=== PATIENT | female | born 1980 | race Hispanic/Latino ===

== ENCOUNTER 2022-07-29 10:10 | Emergency (ER) | payer SELFPAY ==
--- OUTSIDE RECORDS SUMMARY | 2022-07-29 10:13 | XMS REPORT | Continuity of Care Document ---
:1980 Author Organization [facility] Address [address] [facility] [address] [place] [address] Care Team Providers Name Role Phone Freddy Attending Clinician Unavailable EZE HDUSON Attending Clinician Unavailable NO PHYSICIAN, . Attending Clinician Unavailable CLARE COLLIER Attending Clinician Unavailable JR MURDOCK Attending Clinician Unavailable HAILEY GONZALES Attending Clinician Unavailable HORACE CHOU Attending Clinician Unavailable RODRIGUEZ STRINGER Attending Clinician Unavailable Freddy Admitting Clinician Unavailable EZE HUDSON Admitting Clinician Unavailable CLARI SOLIS Admitting Clinician Unavailable Payers Payer Name Policy Type Policy Number Effective Date Expiration Date S yonatan [facility] [id number] 2017 2017 [facility] - 00:00:00 00:00:00 STAR (MEDICAID HMO) Problems This patient has no known problems. Allergies, Adverse Reactions, Alerts This patient has no known allergies or adverse reactions. Medications This patient has no known medications. Procedures This patient has no known procedures. Encounters Start End Encounter Admission Attending Care Care Encounter Source Date/Time Date/Time Type Type Clinicians Facility Department ID 2021-08-20 2021-08-20 Outpatient Nguyen_Tho [facility] [id number] 03:43:00 03:43:00 [facility] 2021-05-26 2021-05-26 Outpatient Nguyen_Tho [facility] [id number] 05:00:00 05:00:00 [id number] [facility] 2021-01-29 2021-01-29 Outpatient Ngen_Tho [facility] [id number] 7-2021 [place] 12:17:00 12:17:00 [id number] [facility] 2020-04-04 2020-04-04 Outpatient Nguyen_Nilesho [facility] [id number] 04:34:00 04:34:00 0128 [facility] 2020-04-04 2020-04-04 Outpatient Nguyen_Tho [facility] [id number] 04:34:00 04:34:00 0201 [facility] 2008-02-08 2008-02-10 Inpatient EL BECCA, [facility] MOB [id number] 06:39:00 14:00:00 EZE [id number] [facility] 2005-11-15 2005-11-15 Outpatient NO [facility] [id number] 00:12:00 00:12:00 PHYSICIAN, -[id number] madonna Sam [facility] 2005-03-27 2005-03-30 Inpatient EL BECCA, [facility] MOB [id number] 12:45:00 12:00:00 EZE [id number] [facility] 2004-11-02 2004-11-02 Emergency ER AMIRA, [facility] [id number] 17:28:00 19:40:00 CLARE -[id number] [facility] 2004-09-22 2004-09-22 Emergency ER JR MURDOCK [facility] [id number] [place] 18:06:00 21:10:00 -[id number] [facility] 2003-05-18 2003-05-18 Emergency ER JANET, [facility] [id number] 01:55:00 03:20:00 HAILEY -[id number] [facility] 1998-10-02 1998-10-02 Outpatient FANNY KIMAugusta HORACE [facility] D00 [id number] [place] 16:46:00 16:46:00 -[id number] [facility] 1998-08-07 1998-08-09 Inpatient SHLOMO KIMAugusta HORACE [facility] MOB [id number] [place] 03:34:00 10:00:00 -[id number] [facility] 1998-07-12 1998-07-12 Outpatient FANNY STRINGER [facility] [id number] 15:30:00 15:30:00 RODRIGUEZ -[id number] [facility] 1998-04-03 1998-04-03 Outpatient HORACE NAYAK [facility] D00 [id number] [place] 10:11:00 10:11:00 -[id number] [facility] 1998-03-29 1998-03-29 Outpatient HORACE NAYAK [facility] D00 [id number] [place] 14:19:00 14:19:00 -[id number] [facility] Results This patient has no known results.
--- NOTE | 2022-07-29 10:39 | ER ---
Nurse's Notes [facility] Name: Emilia Mcelroy Age: 41 yrs Sex: Female : 1980 Arrival Date: 07/29/2022 Time: 10:10 Bed 12 Private MD: Diagnosis: Dental root caries Presentation: 07/29 10:21 Chief complaint: Patient states: left side of face hurts since last night, has a bad iw tooth , upper left molar. Coronavirus screen: At this time, the client does not indicate any symptoms associated with coronavirus-19. Ebola Screen: Patient negative for fever greater than or equal to 101.5 degrees Fahrenheit, and additional compatible Ebola Virus Disease symptoms Patient denies exposure to infectious person. Patient denies travel to an Ebola-affected area in the 21 days before illness onset. No symptoms or risks identified at this time. Initial Sepsis Screen: Does the patient meet any 2 criteria? No. Patient's initial sepsis screen is negative. Does the patient have a suspected source of infection? No. Patient's initial sepsis screen is negative. Risk Assessment: Do you want to hurt yourself or someone else? Patient reports no desire to harm self or others. Onset of symptoms was July 28, 2022. 10:21 Method Of Arrival: Ambulatory iw 10:21 Acuity: DAKOTAH 4 iw FITNESS SERVICES MANAGER: 10:25 LMP N/A - control method ll1 Historical: - Allergies: 10:22 No Known Allergies; iw - Home Meds: 10:22 None [Active]; iw - PMHx: 10:22 None; iw - PSHx: 10:22 section; iw - Immunization history:: Adult Immunizations up to date. - Social history:: Smoking status: . Screenin:24 [facility] ED Fall Risk Assessment (Adult) Score/Fall Risk Level 0 - 2 = Low Risk ll1 Oriented to surroundings, Maintained a safe environment, Educated pt \T\ family on fall prevention, incl call for assistance when getting out of bed, Hourly rounding (assess needs \T\ fall precautionary measures) done. Abuse screen: Denies threats or abuse. Nutritional screening: No deficits noted. Tuberculosis screening: No symptoms or risk factors identified. Assessment: 10:25 General: Appears in no apparent distress. Behavior is calm, cooperative. Pain: iw Complains of pain in left cheek and left jaw. Neuro: Level of Consciousness is awake, alert, obeys commands, Oriented to person, place, time, situation, Moves all extremities. Full function. Cardiovascular: Patient's skin is warm and dry. Respiratory: Respiratory effort is even, unlabored, Respiratory pattern is regular, symmetrical. Derm: Skin is intact, is healthy with good turgor. Musculoskeletal: Range of motion: intact in all extremities, Swelling present in left cheek and left jaw. 10:50 Reassessment: No changes from previously documented assessment. Patient and/or family ll1 updated on plan of care and expected duration. Pain level reassessed. Patient is alert, oriented x 3, equal unlabored respirations, skin warm/dry/pink. Vital Signs: 10:21 BP 180 / 103; Pulse 83; Resp 16; Temp 98.4; Pulse Ox 95% on R/A; Weight 117.93 kg; iw Height 5 ft. 3 in. ; Pain 9/10; 10:21 Body Mass Index 46.06 (117.93 kg, 160.02 cm) iw 10:21 Pain Scale: Adult iw ED Course: 10:14 Patient arrived in ED. mr 10:15 Rowena Marks, [facility] snw 10:15 Addy Browne MD is Attending Physician. snw 10:22 Triage completed. iw 10:22 Arm band placed on. iw 10:25 Chucky Mcelroy, RN is Primary Nurse. ll1 10:25 Patient has correct armband on for positive identification. Bed in low position. Call ll1 light in reach. Cardiac monitoring not applicable on this patient. 10:50 No provider procedures requiring assistance completed. Patient did not have IV access ll1 during this emergency room visit. Administered Medications: 10:49 Drug: Amoxicillin-Clavulanate PO 875 mg Route: PO; ll1 10:49 Follow up: Response: No adverse reaction ll1 10:49 Drug: Hydrocodone-Acetaminophen PO (7.5 mg-325 mg) 1 tabs {Note: RASS 0.} Route: PO; ll1 10:50 Follow up: Response: No adverse reaction ll1 Medication: 10:24 VIS not applicable for this client. ll1 Outcome: 10:38 Discharge ordered by . snw 10:50 Discharged to home ambulatory. ll1 10:50 Condition: stable 10:50 Discharge instructions given to patient, Instructed on discharge instructions, follow up and referral plans. medication usage, Demonstrated understanding of instructions, follow-up care, medications, Prescriptions given X 3. 10:50 Patient left the ED. ll1 Signatures: Rowena Marks, ESME-C CAN LINE EXAMINER-Csnw Luis M Lady brandt Sanam Felton, RN NADJA iw Chucky Mcelroy RN RN ll1 Corrections: (The following items were deleted from the chart) 10:49 10:49 Hydrocodone-Acetaminophen PO (7.5 mg-325 mg) 1 tabs PO ll1 ll1
--- NOTE | 2022-07-29 10:39 | EDPHYS ---
Physician Documentation [facility] Name: Emilia Mcelroy Age: 41 yrs Sex: Female : 1980 Arrival Date: 07/29/2022 Time: 10:10 Bed 12 Private MD: ED Physician Addy Browne HPI: 07/29 10:44 This 41 yrs old Female presents to ER via Ambulatory with complaints of Jaw snw Pain. 10:44 The patient presents with pain. The problem is located in the upper left third molar snw (#16). Onset: The symptoms/episode began/occurred suddenly. Duration: The symptoms are continuous. Severity of symptoms: At their worst the symptoms were moderate. The patient has not experienced similar symptoms in the past. The patient has not recently seen a physician. DRY KILN BURNER: 10:25 LMP N/A - control method ll1 Historical: - Allergies: 10:22 No Known Allergies; iw - Home Meds: 10:22 None [Active]; iw - PMHx: 10:22 None; iw - PSHx: 10:22 section; iw - Immunization history:: Adult Immunizations up to date. - Social history:: Smoking status: . ROS: 10:42 Constitutional: Negative for fever, chills, and weight loss, Eyes: Negative for injury, snw pain, redness, and discharge, ENT: Negative for injury and discharge, +dental pain/caries Neck: Negative for injury, pain, and swelling, Cardiovascular: Negative for chest pain, palpitations, and edema, Respiratory: Negative for shortness of breath, cough, wheezing, and pleuritic chest pain, Abdomen/GI: Negative for abdominal pain, nausea, vomiting, diarrhea, and constipation, Back: Negative for injury and pain, : Negative for injury, bleeding, discharge, and swelling, MS/Extremity: Negative for injury and deformity, Skin: Negative for injury, rash, and discoloration, Neuro: Negative for headache, weakness, numbness, tingling, and seizure, Psych: Negative for depression, anxiety, suicide ideation, homicidal ideation, and hallucinations. Exam: 10:42 Constitutional: This is a well developed, well nourished patient who is awake, alert, snw and in no acute distress. Head/Face: Normocephalic, atraumatic. Eyes: Pupils equal round and reactive to light, extra-ocular motions intact. Lids and lashes normal. Conjunctiva and sclera are non-icteric and not injected. Cornea within normal limits. Periorbital areas with no swelling, redness, or edema. Neck: Trachea midline, no thyromegaly or masses palpated, and no cervical lymphadenopathy. Supple, full range of motion without nuchal rigidity, or vertebral point tenderness. No Meningismus. Chest/axilla: Normal chest wall appearance and motion. Nontender with no deformity. No lesions are appreciated. Cardiovascular: Regular rate and rhythm with a normal S1 and S2. No gallops, murmurs, or rubs. Normal PMI, no JVD. No pulse deficits. Respiratory: Lungs have equal breath sounds bilaterally, clear to auscultation and percussion. No rales, rhonchi or wheezes noted. No increased work of breathing, no retractions or nasal flaring. Abdomen/GI: Soft, non-tender, with normal bowel sounds. No distension or tympany. No guarding or rebound. No evidence of tenderness throughout. Back: No spinal tenderness. No costovertebral tenderness. Full range of motion. Skin: Warm, dry with normal turgor. Normal color with no rashes, no lesions, and no evidence of cellulitis. MS/ Extremity: Pulses equal, no cyanosis. Neurovascular intact. Full, normal range of motion. Neuro: Awake and alert, GCS 15, oriented to person, place, time, and situation. Cranial nerves II-XII grossly intact. Motor strength 5/5 in all extremities. Sensory grossly intact. Cerebellar exam normal. Normal gait. Psych: Awake, alert, with orientation to person, place and time. Behavior, mood, and affect are within normal limits. 10:42 ENT: Dental exam: dental caries, that is moderate, specifically in the upper left third molar (#16), pain, that is moderate, specifically in the upper left third molar (#16). Vital Signs: 10:21 BP 180 / 103; Pulse 83; Resp 16; Temp 98.4; Pulse Ox 95% on R/A; Weight 117.93 kg; iw Height 5 ft. 3 in. ; Pain 9/10; 10:21 Body Mass Index 46.06 (117.93 kg, 160.02 cm) iw 10:21 Pain Scale: Adult iw MDM: 10:20 Patient medically screened. snw 10:43 Differential diagnosis: bacterial infection. Data reviewed: vital signs, nurses notes. snw I considered the following discharge prescriptions or medication management in the emergency department Medications were administered in the Emergency Department. See MAR. Counseling: I had a detailed discussion with the patient and/or guardian regarding: the historical points, exam findings, and any diagnostic results supporting the discharge/admit diagnosis, the presence of at least one elevated blood pressure reading (>120/80) during this emergency department visit, the need for outpatient follow up, for definitive care, to return to the emergency department if symptoms worsen or persist or if there are any questions or concerns that arise at home. Special discussion: I have referred the patient to see his PCP for further evaluation of high blood pressure. Based on the history and exam findings, there is no indication for further emergent testing or inpatient evaluation. I discussed with the patient/guardian the need to see a dentist for further evaluation of the symptoms. Administered Medications: 10:49 Drug: Amoxicillin-Clavulanate PO 875 mg Route: PO; ll1 10:49 Follow up: Response: No adverse reaction ll1 10:49 Drug: Hydrocodone-Acetaminophen PO (7.5 mg-325 mg) 1 tabs {Note: RASS 0.} Route: PO; ll1 10:50 Follow up: Response: No adverse reaction ll1 Disposition: 20:11 Co-signature as Attending Physician, Addy Browne MD I reviewed the patient's care rt provided by the Advanced Practice Provider and agree with the diagnosis and treatment plan. Disposition Summary: 07/29/22 10:38 Discharge Ordered Location: Home snw Condition: Stable snw Diagnosis - Dental root caries snw Followup: snw - With: Emergency Department - When: As needed - Reason: Worsening of condition Followup: snw - With: Private Physician - When: 2 - 3 days - Reason: Recheck today's complaints, Continuance of care, Re-evaluation by your physician Discharge Instructions: - Discharge Summary Sheet snw - Dental Caries, Adult snw - Dental Pain snw - Diet and Dental Disease snw - Dental Extraction, Care After, [id number] snw Forms: - Medication Reconciliation Form snw - Thank You Letter snw - Antibiotic Education snw - Prescription Opioid Use snw Prescriptions: - chlorhexidine gluconate 0.12 % Mucous Membrane Mouthwash - swish 15 milliliter by BUCCAL route 2 times per day; 480 milliliter; Refills: snw 0, Product Selection Permitted - Augmentin 500-125 mg Oral Tablet - take 1 tablet by ORAL route every 8 hours for 10 days; 30 tablet; Refills: 0, snw Product Selection Permitted - Tramadol 50 mg Oral Tablet - take 1 tablet by ORAL route every 8 hours as needed; 12 tablet; Refills: 0, snw Product Selection Permitted Signatures: Rowena Marks, DISABILITY SPECIALIST-C DISABILITY SPECIALIST-Csnw Sanam Felton, RN RN iw Chucky Mcelroy RN RN ll1 Addy Browne MD MD rt
[2022-07-29] MEDS ORDERED: AMOX/K CLAV 875 MG TAB ONE (10:50)
[2022-07-29] MEDS ORDERED: HYDROCODONE/APAP 7.5/325 MG TAB ONE (10:51)
[2022-07-29 10:58] VITALS: BP 180/103; TEMP 98.4; O2SAT 95
== END 2022-07-29 10:50 | disposition home or self-care (01) ==
LOC: ER 10:10
DX: K02.7 Dental root caries (principal)

== ENCOUNTER 2022-08-07 08:03 | Emergency (ER) | payer SELFPAY ==
--- OUTSIDE RECORDS SUMMARY | 2022-08-07 08:06 | XMS REPORT | Continuity of Care Document ---
:1980 Author Organization [facility] Address [address] [facility] [address] [facility] [address] [place] [address] Care Team Providers Name Role Phone Freddy Attending Clinician Unavailable EZE HUDSON Attending Clinician Unavailable NO PHYSICIAN, . Attending Clinician Unavailable CLARE COLLIER Attending Clinician Unavailable JR MURDOCK Attending Clinician Unavailable HAILEY GONZALES Attending Clinician Unavailable HORACE CHOU Attending Clinician Unavailable RODRIGUEZ STRINGER Attending Clinician Unavailable Freddy Admitting Clinician Unavailable EZE HUDSON Admitting Clinician Unavailable CLARI SOLIS Admitting Clinician Unavailable Payers Payer Name Policy Type Policy Number Effective Date Expiration Date S yonatan [facility] [id number] 2017 2017 [facility] - 00:00:00 00:00:00 STAR (MEDICAID HMO) Problems This patient has no known problems. Allergies, Adverse Reactions, Alerts This patient has no known allergies or adverse reactions. Medications This patient has no known medications. Procedures This patient has no known procedures. Encounters Start End Encounter Admission Attending Care Care Encounter Source Date/Time Date/Time Type Type Clinicians Facility Department ID 2021-08-20 2021-08-20 Outpatient Nguyen_Tho [facility] [id number] 03:43:00 03:43:00 [id number] [facility] 2021-05-26 2021-05-26 Outpatient Nguyen_Tho [facility] [id number] 05:00:00 05:00:00 0321 [facility] 2021-01-29 2021-01-29 Outpatient Ngen_Tho [facility] [id number] 7-2021 [place] 12:17:00 12:17:00 [id number] [facility] 2020-04-04 2020-04-04 Outpatient Nguyen_Nilesho [facility] [id number] 04:34:00 04:34:00 0128 [facility] 2020-04-04 2020-04-04 Outpatient Nguyen_Tho [facility] [id number] 04:34:00 04:34:00 0201 [facility] 2008-02-08 2008-02-10 Inpatient EL BECCA, [facility] MOB [id number] 06:39:00 14:00:00 EZE [id number] [facility] 2005-11-15 2005-11-15 Outpatient NO [facility] [id number] 00:12:00 00:12:00 PHYSICIAN, -[id number] madonna Sam [facility] 2005-03-27 2005-03-30 Inpatient EL BECCA, [facility] MOB [id number] 12:45:00 12:00:00 EZE [id number] [facility] 2004-11-02 2004-11-02 Emergency ER AMIRA, [facility] [id number] 17:28:00 19:40:00 CLARE -[id number] [facility] 2004-09-22 2004-09-22 Emergency ER JR MURDOCK [facility] [id number] [place] 18:06:00 21:10:00 -[id number] [facility] 2003-05-18 2003-05-18 Emergency ER JANET, [facility] [id number] 01:55:00 03:20:00 HAILEY -[id number] [facility] 1998-10-02 1998-10-02 Outpatient FANNY KIMAugusta HORACE [facility] D00 [id number] [place] 16:46:00 16:46:00 -[id number] [facility] 1998-08-07 1998-08-09 Inpatient SHLOMO KIMAugusta HORACE [facility] MOB [id number] [place] 03:34:00 10:00:00 -[id number] [facility] 1998-07-12 1998-07-12 Outpatient FANNY STRINGER [facility] [id number] 15:30:00 15:30:00 RODRIGUEZ -[id number] [facility] 1998-04-03 1998-04-03 Outpatient HORACE NAYAK [facility] D00 [id number] [place] 10:11:00 10:11:00 -[id number] [facility] 1998-03-29 1998-03-29 Outpatient HORACE NAYAK [facility] D00 [id number] [place] 14:19:00 14:19:00 -[id number] [facility] Results This patient has no known results.
[2022-08-07] MEDS ORDERED: KETOROLAC 30 MG/ML INJ ONE (08:22)
[2022-08-07] MEDS ORDERED: HYDROCODONE/APAP 10/325 TAB ONE (08:22)
--- NOTE | 2022-08-07 09:47 | RAD REPORT ---
EXAM DESCRIPTION: RAD - Shoulder Right 2 View - 08/07/2022 9:41 am CLINICAL HISTORY: Right shoulder pain FINDINGS: No fracture or dislocation is seen. No significant bone or joint abnormality is displayed
[2022-08-07] MEDS ORDERED: MORPHINE 4 MG/ML SYR ONE (10:13)
--- NOTE | 2022-08-07 10:24 | EDPHYS ---
Physician Documentation [facility] Name: Emilia Mcelroy Age: 41 yrs Sex: Female : 1980 Arrival Date: 08/07/2022 Time: 08:03 Bed 6 Private MD: ED Physician Addy Browne HPI: 08/07 08:12 This 41 yrs old Female presents to ER via Ambulatory with complaints of Arm jmm Pain. 08:12 The patient or guardian complains of pain. The complaints affect the anterior aspect of jmm right shoulder. Onset: The symptoms/episode began/occurred gradually. Modifying factors: The symptoms are alleviated by nothing. the symptoms are aggravated by movement. Is a 41-year-old female with history of rheumatoid arthritis the presents emerged part with complaints of right shoulder pain began approximately 3 weeks ago. Pain intensified last night. Patient states she has pain in particular on abduction, the pain radiates down to her hand. Patient denies any known injury.. Historical: - Allergies: 08:20 No Known Allergies; ld1 - PMHx: 08:21 None; ld1 - PSHx: 08:12 section; ld1 - Immunization history:: Adult Immunizations up to date. - Social history:: Smoking status: Patient denies any tobacco usage or history of. ROS: 08:12 Constitutional: Negative for fever, chills, and weight loss, Cardiovascular: Negative jmm for chest pain, palpitations, and edema, Respiratory: Negative for shortness of breath, cough, wheezing, and pleuritic chest pain. 08:12 MS/extremity: Positive for pain. 08:12 All other systems are negative. Exam: 08:12 Head/Face: atraumatic. Eyes: EOMI, no conjunctival erythema appreciated ENT: Moist jmm Mucus Membranes Neck: Trachea midline, Supple Chest/axilla: Normal chest wall appearance and motion. Cardiovascular: Regular rate and rhythm. No edema appreciated Respiratory: Normal respirations, no respiratory distress appreciated Abdomen/GI: Non distended Back: Normal ROM Skin: General appearance color normal 08:12 Neuro: Awake and alert Psych: Behavior is normal, Mood is normal, Patient is cooperative and pleasant 08:12 Constitutional: The patient appears alert, awake, uncomfortable. 08:12 Musculoskeletal/extremity: ROM: Right anterior shoulder tender to palpation, compartments are soft, pain is elicited on abduction, radial pulse intact, less than 2 seconds cap refill, full pump room operator strength, neurovascular intact. Vital Signs: 08:18 Pulse 92; Resp 18; Temp 98.6(O); Pulse Ox 98% on R/A; Weight 120.2 kg; Height 5 ft. 3 hb in. ; Pain 10/10; 08:19 BP 203 / 118; Pulse 86; Resp 18; Temp 98.3(O); Pulse Ox 100% on R/A; Weight 117.93 kg; ld1 Height 5 ft. 3 in. ; Pain 9/10; 08:41 BP 189 / 91; Pulse 75; Resp 18; Pulse Ox 99% on R/A; ld1 10:00 BP 154 / 79; Pulse 74; Resp 18; Pulse Ox 98% on R/A; ld1 10:42 BP 151 / 76; Pulse 71; Resp 18; Pulse Ox 100% on R/A; ld1 08:19 Body Mass Index 46.06 (117.93 kg, 160.02 cm) ld1 08:18 Pain Scale: Adult hb 08:19 Pain Scale: Adult ld1 MDM: 08:12 Patient medically screened. [facility] 08:12 Differential diagnosis: tendonitis. Data reviewed: vital signs, nurses notes, [facility] radiologic studies, plain films. Independent interpretation of the following test(s) in the Emergency Department X-Ray: My interpretation is No fracture appreciated. Counseling: I had a detailed discussion with the patient and/or guardian regarding: the historical points, exam findings, and any diagnostic results supporting the discharge/admit diagnosis, radiology results, the need for outpatient follow up, to return to the emergency department if symptoms worsen or persist or if there are any questions or concerns that arise at home. 08/07 09:25 Order name: Shoulder Right (2 View) XRAY; Complete Time: 09:48 [facility] 08/07 10:02 Order name: Sling; Complete Time: 10:42 [facility] 08/07 10:02 Order name: Ice pack; Complete Time: 10:17 [facility] Administered Medications: 08:18 Drug: [place] PO 10 mg-325 mg 1 tabs Route: PO; ld1 10:13 Follow up: Response: No adverse reaction 9 08:18 Drug: Ketorolac IM 30 mg Route: IM; Site: left deltoid; ld1 10:13 Follow up: Response: No adverse reaction mb9 10:07 Drug: morphine IM 4 mg Route: IM; Site: left gluteus; mb9 10:13 Follow up: Response: No adverse reaction mb9 Disposition: 11:18 Co-signature as Attending Physician, Addy Browne MD I reviewed the patient's care rt provided by the Advanced Practice Provider and agree with the diagnosis and treatment plan. Disposition Summary: 08/07/22 10:22 Discharge Ordered Location: Home [facility] Condition: Stable jm Diagnosis - Pain in right shoulder [facility] Followup: m - With: Justin Mccrary MD - When: 2 - 3 days - Reason: Recheck today's complaints, Continuance of care, Re-evaluation by your physician Discharge Instructions: - Discharge Summary Sheet [facility] - Shoulder Pain [facility] - Adhesive Capsulitis [facility] Forms: - Medication Reconciliation Form [facility] - Thank You Letter [facility] - Antibiotic Education [facility] - Prescription Opioid Use [facility] Prescriptions: - Prednisone 20 mg Oral Tablet - take 3 tablets by ORAL route once daily for 5 days; 15 tablet; Refills: 0, [facility] Product Selection Permitted - Zanaflex 4 mg Oral Tablet - take 1 tablet by ORAL route every 8 hours As needed; 20 tablet; Refills: 0, [facility] Product Selection Permitted - Diclofenac Sodium 75 mg Oral Tablet Sustained Release - take 1 tablet by ORAL route 2 times per day; 30 tablet; Refills: 0, Product [facility] Selection Permitted Signatures: Dispatcher [employer] Zach Camargo PA PA Maira He RN RN hb Sims, Lauren, RN RN ld1 Lady Valdez RN RN mb9 Addy Browne MD MD rt
--- NOTE | 2022-08-07 10:24 | ER ---
Nurse's Notes [facility] Name: Emilia Mcelroy Age: 41 yrs Sex: Female : 1980 Arrival Date: 08/07/2022 Time: 08:03 Bed 6 Private MD: Diagnosis: Pain in right shoulder Presentation: 08/07 08:18 Chief complaint: Right shoulder pain that radiates to right arm x 3 weeks, became hb severe last night. Coronavirus screen: At this time, the client does not indicate any symptoms associated with coronavirus-19. Ebola Screen: No symptoms or risks identified at this time. Initial Sepsis Screen: Does the patient meet any 2 criteria? No. Patient's initial sepsis screen is negative. Does the patient have a suspected source of infection? No. Patient's initial sepsis screen is negative. Risk Assessment: Do you want to hurt yourself or someone else? Patient reports no desire to harm self or others. Onset of symptoms was July 2022. 08:18 Method Of Arrival: Ambulatory hb 08:18 Acuity: DAKOTAH 4 hb Historical: - Allergies: 08:20 No Known Allergies; ld1 - PMHx: 08:21 None; ld1 - PSHx: 08:12 section; ld1 - Immunization history:: Adult Immunizations up to date. - Social history:: Smoking status: Patient denies any tobacco usage or history of. Screenin:19 [facility] ED Fall Risk Assessment (Adult) History of falling in the last 3 months, ld1 including since admission No falls in past 3 months (0 pts). Abuse screen: Denies threats or abuse. Denies injuries from another. Nutritional screening: No deficits noted. Tuberculosis screening: No symptoms or risk factors identified. Assessment: 08:19 General: Appears in no apparent distress. uncomfortable, Behavior is cooperative, ld1 anxious, crying. Pain: Complains of pain in right arm Pain does not radiate. Pain currently is 9 out of 10 on a pain scale. Quality of pain is described as throbbing. Neuro: Level of Consciousness is awake, alert, obeys commands, Oriented to person, place, time, situation. Cardiovascular: Capillary refill < 3 seconds Patient's skin is warm and dry. Respiratory: Airway is patent Respiratory effort is even, unlabored. GI: Abdomen is round non-distended. : No signs and/or symptoms were reported regarding the genitourinary system. EENT: No signs and/or symptoms were reported regarding the EENT system. Derm: No signs and/or symptoms reported regarding the dermatologic system. Musculoskeletal: No signs and/or symptoms reported regarding the musculoskeletal system. 10:42 Reassessment: Patient appears in no apparent distress at this time. No changes from ld1 previously documented assessment. Vital Signs: 08:18 Pulse 92; Resp 18; Temp 98.6(O); Pulse Ox 98% on R/A; Weight 120.2 kg; Height 5 ft. 3 hb in. ; Pain 10/10; 08:19 BP 203 / 118; Pulse 86; Resp 18; Temp 98.3(O); Pulse Ox 100% on R/A; Weight 117.93 kg; ld1 Height 5 ft. 3 in. ; Pain 9/10; 08:41 BP 189 / 91; Pulse 75; Resp 18; Pulse Ox 99% on R/A; ld1 10:00 BP 154 / 79; Pulse 74; Resp 18; Pulse Ox 98% on R/A; ld1 10:42 BP 151 / 76; Pulse 71; Resp 18; Pulse Ox 100% on R/A; ld1 08:19 Body Mass Index 46.06 (117.93 kg, 160.02 cm) ld1 08:18 Pain Scale: Adult hb 08:19 Pain Scale: Adult ld1 ED Course: 08:06 Patient arrived in ED. mr 08:12 Zach Altman PA is PHCP. jmm 08:12 Addy Browne MD is Attending Physician. jmm 08:12 Fabiana Morris, NADJA is Primary Nurse. ld1 08:18 Arm band placed on. hb 08:19 Triage completed. hb 08:19 Patient has correct armband on for positive identification. Placed in gown. Bed in low ld1 position. Call light in reach. Side rails up X2. nuclear monitoring technician on. Pulse ox on. NIBP on. Door closed. Noise minimized. Warm blanket given. 08:19 No provider procedures requiring assistance completed. ld1 09:43 Shoulder Right (2 View) XRAY In Process Unspecified. EDMS 10:22 Justin Mccrary MD is Referral Physician. jmm 10:39 Patient did not have IV access during this emergency room visit. mb9 Administered Medications: 08:18 Drug: [place] PO 10 mg-325 mg 1 tabs Route: PO; ld1 10:13 Follow up: Response: No adverse reaction mb9 08:18 Drug: Ketorolac IM 30 mg Route: IM; Site: left deltoid; ld1 10:13 Follow up: Response: No adverse reaction mb9 10:07 Drug: morphine IM 4 mg Route: IM; Site: left gluteus; mb9 10:13 Follow up: Response: No adverse reaction mb9 Medication: 10:39 VIS not applicable for this client. mb9 Outcome: 10:22 Discharge ordered by MD. vera 10:42 Discharged to home ambulatory, with family. ld1 10:42 Condition: stable 10:42 Discharge instructions given to patient, family, Instructed on discharge instructions, follow up and referral plans. medication usage, Demonstrated understanding of instructions, follow-up care, medications, Prescriptions given X 3. 10:43 Patient left the ED. ld1 Signatures: Dispatcher [employer] EDMS Zach Altman PA PA jmm Rivera, Mary mr Baxter, Heather RN NADJA Fabiana Morris RN RN ld1 Lady Valdez RN RN mb9
[2022-08-07 10:50] VITALS: TEMP 98.3
[2022-08-07 10:55] VITALS: BP 151/76; O2SAT 100
== END 2022-08-07 10:43 | disposition home or self-care (01) ==
LOC: ER 08:03
DX: M25.511 Pain in right shoulder (principal)
CPT/HCPCS: 96372; 99285

== ENCOUNTER 2022-08-11 18:37 | Emergency (ER) | payer SELFPAY ==
--- OUTSIDE RECORDS SUMMARY | 2022-08-11 18:39 | XMS REPORT | Continuity of Care Document ---
:1980 Author Organization [facility] Address [address] [place] [address] Care Team Providers Name Role Phone Freddy [...] Number Effective Date Expiration Date S yonatan [facility] [id number] 2017 2017 [facility] - 00:00:00 00:00:00 STAR (MEDICAID [...] Facility Department ID 2021-08-20 2021-08-20 Outpatient Nguyen_Tho [facility] [id number] 03:43:00 03:43:00 [id number] [facility] 2021-05-26 2021-05-26 Outpatient Nguyen_Tho [facility] [id number] 05:00:00 05:00:00 [id number] [facility] 2021-01-29 2021-01-29 Outpatient Ngen_Tho [facility] [id number] [place] 12:17:00 12:17:00 [id number] [facility] 2020-04-04 2020-04-04 Outpatient Nguyen_Nilesho [facility] [id number] 04:34:00 04:34:00 [id number] [facility] 2020-04-04 2020-04-04 Outpatient Nguyen_Tho [facility] [id number] 04:34:00 04:34:00 [id number] [facility] 2008-02-08 2008-02-10 Inpatient EL BECCA, [facility] MOB [id number] 06:39:00 14:00:00 EZE [id number] [facility] 2005-11-15 2005-11-15 Outpatient NO [facility] [id number] 00:12:00 00:12:00 PHYSICIAN, -[id number] madonna Sam [facility] 2005-03-27 2005-03-30 Inpatient EL BECCA, [facility] MOB [id number] 12:45:00 12:00:00 EZE [id number] [facility] 2004-11-02 2004-11-02 Emergency ER AMIRA, [facility] [id number] 17:28:00 19:40:00 CLARE -[id number] [facility] 2004-09-22 2004-09-22 Emergency ER JR MURDOCK [facility] [id number] [place] 18:06:00 21:10:00 -[id number] [facility] 2003-05-18 2003-05-18 Emergency ER JANET, [facility] [id number] 01:55:00 03:20:00 HAILEY -[id number] [facility] 1998-10-02 1998-10-02 Outpatient FANNY KIMAugusta HORACE [facility] [id number] [place] 16:46:00 16:46:00 -[id number] [facility] 1998-08-07 1998-08-09 Inpatient SHLOMO KIMAugutsa HORACE [facility] MOB [id number] [place] 03:34:00 10:00:00 -[id number] [facility] 1998-07-12 1998-07-12 Outpatient FANNY STRINGER [facility] [id number] 15:30:00 15:30:00 RODRIGUEZ -[id number] [facility] 1998-04-03 1998-04-03 Outpatient HORACE NAYAK [facility] [id number] [place] 10:11:00 10:11:00 -[id number] [facility] 1998-03-29 1998-03-29 Outpatient HORACE NAYAK [facility] [id number] [place] 14:19:00 14:19:00 -[id number] [facility] Results This patient has no known results.
[2022-08-11 21:18] LABS: Absolute Lymphocytes (CBC) 1.7 K/uL (0.7-4.9); Hematocrit 35.6 % (36.0-45.0); Lymphocytes % 12.7 % (15.3-44.8); MCV 81.3 fL (80-100); MPV 8.4 fL (7.6-11.3); Protime INR 0.95; RBC Red Blood Cell Count 4.38 M/uL (3.86-4.86)
[2022-08-11 21:43] LABS: ALT/SGPT 100 U/L (13-56); AST/SGOT 19 U/L (15-37); Albumin 3.5 g/dL (3.4-5.0); Alkaline Phosphatase 89 U/L (45-117); BUN Blood Urea Nitrogen 13 mg/dL (7-18); Bicarbonate 30 mEq/L (21-32); Bilirubin Total 0.2 mg/dL (0.2-1.0); Glomerular Filtration Rate 117 ml/min (=/>90); Glucose Level 164 mg/dL (74-106); Potassium 4.1 mEq/L (3.5-5.1); Protein, Total 7.6 g/dL (6.4-8.2); Sodium Level 138 mEq/L (136-145); Troponin High Sensitivity 4.8 pg/mL (<58.9)
[2022-08-11 21:46] LABS: Bilirubin Direct < 0.1 mg/dL (0-0.2); Bilirubin Indirect, Calculated ND mg/dL (0.2-0.8); C-Reactive Protein < 2.90 mg/L (<3.00)
[2022-08-11] MEDS ORDERED: HYDROCODONE/APAP 5/325 MG TAB ONE (22:22)
[2022-08-11] MEDS ORDERED: methocarbamoL 500 MG TAB ONE (22:23)
[2022-08-11] MEDS ORDERED: IBUPROFEN 400 MG TAB ONE (22:23)
--- NOTE | 2022-08-11 22:29 | RAD REPORT ---
EXAM DESCRIPTION: CT - Chest For Pe Angio - 08/11/2022 10:16 pm CLINICAL HISTORY: Chest pain. CHEST PAIN COMPARISON: No comparisons TECHNIQUE: CT angiogram of the pulmonary arteries was performed with MIP. All CT scans are performed using dose optimization technique as appropriate and may include automated exposure control or mA/KV adjustment according to patient size. FINDINGS: No evidence of pulmonary thromboembolism. No acute aortic finding demonstrated. The lungs are clear. No significant pericardial or pleural fluid. No concerning bony finding. IMPRESSION: No evidence of pulmonary thromboembolism. No acute lung findings.
--- NOTE | 2022-08-11 23:44 | EDPHYS ---
Physician Documentation [facility] Name: Emilia Mcelroy Age: 41 yrs Sex: Female : 1980 Arrival Date: 08/11/2022 Time: 18:37 Bed 8 Private MD: ED Physician Rosendo Yee HPI: 08/11 20:01 This 41 yrs old Female presents to ER via Ambulatory with complaints of sp4 Shoulder Pain. 21:49 41-year-old female presents with right shoulder pain with radiation to the right chest sp4 associated with pain with shoulder movement. Pain started 6 days ago. Patient was here on 08/07/2022 had a negative shoulder x-ray. Patient has history of rheumatoid arthritis. Patient states that her rheumatoid arthritis currently unmanaged. Patient describes pain as constant, radiating around the right shoulder blade the right chest as well. Worse with the right shoulder movement . . Historical: - Allergies: 19:27 No Known Allergies; nj1 - PMHx: 19:27 Hypertensive disorder; RA; nj1 - PSHx: 19:27 section; section; section; section; nj1 - Immunization history:: Client reports having NOT received the Covid vaccine. - Social history:: Smoking status: Patient denies any tobacco usage or history of. - Family history:: not pertinent. ROS: 21:49 Constitutional: Negative for fever, chills, and weight loss, Eyes: Negative for injury, sp4 pain, redness, and discharge, ENT: Negative for injury, pain, and discharge, Neck: Negative for injury, pain, and swelling, Cardiovascular: Negative for palpitations, and edema, right shoulder pain with radiation to the right chest Respiratory: Negative for shortness of breath, cough, wheezing, and pleuritic chest pain, Abdomen/GI: Negative for abdominal pain, nausea, vomiting, diarrhea, and constipation, Back: Negative for injury and pain, : Negative for injury, bleeding, discharge, and swelling, MS/Extremity: Negative for injury and deformity, positive for nontraumatic right shoulder pain right shoulder blade pain Skin: Negative for injury, rash, and discoloration, Neuro: Negative for headache, weakness, numbness, tingling, and seizure, Psych: Negative for depression, anxiety, Allergy/Immunology: Negative for hives, rash, and allergies Endocrine: Negative for neck swelling, polydipsia, polyuria, polyphagia, and weight changes Hematologic/Lymphatic: Negative for swollen nodes, abnormal bleeding, and unusual bruising Exam: 21:49 Constitutional: This is a well developed, well nourished patient who is awake, alert, sp4 and in no acute distress. Head/Face: Normocephalic, atraumatic. Eyes: Pupils equal round and reactive to light, extra-ocular motions intact. Lids and lashes normal. Conjunctiva and sclera are not injected. Cornea within normal limits. Periorbital areas with no swelling, redness, or edema. ENT: Nares patent. No nasal discharge, no septal abnormalities noted. Tympanic membranes are normal and external auditory canals are clear. Oropharynx with no redness, swelling, or masses, exudates, or evidence of obstruction, uvula midline. Mucous membranes moist. Neck: Trachea midline, no thyromegaly or masses palpated, and no cervical lymphadenopathy. Supple, full range of motion without nuchal rigidity, or vertebral point tenderness. No Meningismus. Chest/axilla: Normal chest wall appearance and motion. Nontender with no deformity. No lesions are appreciated. Cardiovascular: Regular rate and rhythm with a normal S1 and S2. No gallops, murmurs, or rubs. Normal PMI, no JVD. No pulse deficits. Respiratory: Lungs have equal breath sounds bilaterally, clear to auscultation and percussion. No rales, rhonchi or wheezes noted. No increased work of breathing, no retractions or nasal flaring. Abdomen/GI: Soft, non-tender, with normal bowel sounds. No distension or tympany. No guarding or rebound. No evidence of tenderness throughout. Back: No spinal tenderness. No costovertebral tenderness. Skin: Warm, dry with normal turgor. Normal color with no rashes, no lesions, and no evidence of cellulitis. MS/ Extremity: Pulses equal, no cyanosis. Neurovascular intact. Full, normal range of motion. Positive right shoulder blade tenderness otherwise normal exam. There is no swelling, intact peripheral pulses Neuro: Awake and alert, GCS 15, oriented to person, place, time, and situation. Cranial nerves II-XII grossly intact. Motor strength 5/5 in all extremities. Sensory grossly intact. Psych: Awake, alert, with orientation to person, place and time. Behavior, mood, and affect are within normal limits Vital Signs: 19:24 BP 189 / 93; Pulse 62; Resp 18; Temp 97.3(TE); Pulse Ox 99% on R/A; Weight 120.2 kg; nj1 Height 5 ft. 3 in. ; Pain 9/10; 22:39 BP 176 / 89; Pulse 64; Resp 17 S; Pulse Ox 99% on R/A; lg3 08/12 00:08 BP 161 / 86; Pulse 62; Resp 17 S; Pulse Ox 99% on R/A; lg3 08/11 19:24 Body Mass Index 46.94 (120.20 kg, 160.02 cm) [facility] 08/11 19:24 Pain Scale: Adult [facility] MDM: 08/11 20:25 Patient medically screened. sp4 23:41 Differential diagnosis: humeral head fracture, DJD, tendonitis, Inflammatory sp4 arthropathy. Data reviewed: vital signs, nurses notes, lab test result(s), cardiac enzymes, CBC, electrolytes, hepatic panel, radiologic studies, CT scan. ED course: CT chest PE protocol is unremarkable. There was also no acute bony findings. No signs of vascular anomalies. No signs of lung tumors. Patient is stable for discharge home will advise follow-up with primary MD for management of rheumatoid arthritis, likely diagnosis rheumatoid arthritis flare. CRP is negative however patient has been taking p.o. prednisone since 08/07/2022.. There is mild WBC elevation also likely secondary to acute glucocorticoid consumption.. Will provide prescription for tramadol and Robaxin as needed for pain, will extend prednisone course for the next 5 days. . 08/11 20:38 Order name: Basic Metabolic Panel; Complete Time: 21:54 [facility] 08/11 20:38 Order name: CBC with Diff; Complete Time: 21:54 [facility] 08/11 20:38 Order name: LFT's; Complete Time: 21:54 [facility] 08/11 20:38 Order name: PT-INR; Complete Time: 21:54 [facility] 08/11 20:38 Order name: Troponin HS; Complete Time: 21:54 [facility] 08/11 20:39 Order name: CRP; Complete Time: 21:54 [facility] 08/11 20:39 Order name: CT Chest For PE Angio; Complete Time: 23:34 [facility] 08/11 20:38 Order name: IV Saline Lock; Complete Time: 21:12 sp4 08/11 20:38 Order name: Labs collected and sent; Complete Time: 21:12 sp4 Administered Medications: 22:35 Drug: HYDROcodone-acetaminophen PO 5 mg-325 mg 1 tabs Route: PO; lg3 08/12 00:02 Follow up: Response: No adverse reaction lg3 08/11 22:35 Drug: Ibuprofen PO 800 mg Route: PO; lg3 08/12 00:02 Follow up: Response: No adverse reaction lg3 08/11 22:35 Drug: Methocarbamol PO 1500 mg Route: PO; lg3 08/12 00:02 Follow up: Response: No adverse reaction lg3 00:02 Drug: HYDROcodone-acetaminophen PO 5 mg-325 mg 1 tabs Route: PO; lg3 00:02 Drug: Promethazine PO 25 mg Route: PO; lg3 Disposition Summary: 08/11/22 23:43 Discharge Ordered Location: Home sp4 Problem: new sp4 Symptoms: have improved sp4 Condition: Stable sp4 Diagnosis - Pain in right shoulder sp4 - Inflammatory arthropathy. History of rheumatoid arthritis, right shoulder arthritissp4 Followup: sp4 - With: Private Physician - When: 7 - 10 days - Reason: Recheck today's complaints Discharge Instructions: - Discharge Summary Sheet sp4 - Rheumatoid Arthritis, Brun-tl-Merx sp4 Prescriptions: - Prednisone 20 mg Oral Tablet - take 1 tablet by ORAL route once daily for 5 days; 5 tablet; Refills: 0, sp4 Product Selection Permitted - Tramadol 50 mg Oral Tablet - take 1 tablet by ORAL route every 8 hours as needed; 30 tablet; Refills: 0, sp4 Product Selection Permitted - methocarbamol 750 mg Oral Tablet - take 2 tablets by ORAL route 4 times per day for 3 days; 60 tablet; Refills: 0, sp4 Product Selection Permitted Signatures: Dispatcher [employer] Radha Wyatt, RN RN lg3 Rosendo Yee MD MD sp4 Trisha Nguyen RN RN nj1
--- NOTE | 2022-08-11 23:44 | ER ---
Nurse's Notes [facility] Name: Emilia Mcelroy Age: 41 yrs Sex: Female : 1980 Arrival Date: 08/11/2022 Time: 18:37 Bed 8 Private MD: Diagnosis: Pain in right shoulder;Inflammatory arthropathy. History of rheumatoid arthritis, right shoulder arthritis Presentation: 08/11 19:24 Chief complaint: Patient states: Right shoulder pain, no known injury, onset was nj1 , seen here then, ran out of muscle relaxants this morning. Pain is getting as severe as when she first came . Appointment with PCP this coming Wednesday. Coronavirus screen: Vaccine status: Patient reports being unvaccinated. Ebola Screen: Patient denies travel to an Ebola-affected area in the 21 days before illness onset. Initial Sepsis Screen: Does the patient meet any 2 criteria? No. Patient's initial sepsis screen is negative. Does the patient have a suspected source of infection? No. Patient's initial sepsis screen is negative. Risk Assessment: Do you want to hurt yourself or someone else? Patient reports no desire to harm self or others. Onset of symptoms was August 06, 2022. 19:24 Method Of Arrival: Ambulatory [facility] 19:24 Acuity: DAKOTAH 3 nj1 Historical: - Allergies: 19:27 No Known Allergies; nj1 - PMHx: 19:27 Hypertensive disorder; RA; nj1 - PSHx: 19:27 section; section; section; section; nj1 - Immunization history:: Client reports having NOT received the Covid vaccine. - Social history:: Smoking status: Patient denies any tobacco usage or history of. - Family history:: not pertinent. Screenin:10 [facility] ED Fall Risk Assessment (Adult) History of falling in the last 3 months, lg3 including since admission No falls in past 3 months (0 pts). Abuse screen: Denies threats or abuse. Denies injuries from another. Nutritional screening: No deficits noted. Tuberculosis screening: No symptoms or risk factors identified. Assessment: 21:10 General: Appears in no apparent distress. uncomfortable, Behavior is calm, cooperative. lg3 Pain: Complains of pain in right shoulder Pain radiates to right arm. Neuro: No deficits noted. Pena Agitation-Sedation Scale (RASS): 0 - Alert and Calm Level of Consciousness is awake, alert, obeys commands, Oriented to person, place, time, situation. Cardiovascular: No deficits noted. Denies chest pain, shortness of breath, Capillary refill < 3 seconds Clubbing of nail beds is absent Patient's skin is warm and dry. Respiratory: No deficits noted. Airway is patent Respiratory effort is even, unlabored, Respiratory pattern is regular, symmetrical. GI: No deficits noted. No signs and/or symptoms were reported involving the gastrointestinal system. Abdomen is round non-distended, obese. : No deficits noted. No signs and/or symptoms were reported regarding the genitourinary system. EENT: No deficits noted. No signs and/or symptoms were reported regarding the EENT system. Derm: No deficits noted. No signs and/or symptoms reported regarding the dermatologic system. Skin is intact, is healthy with good turgor, Skin is dry, Skin is normal, Skin temperature is warm. Musculoskeletal: No deficits noted. Circulation, motion, and sensation intact. Range of motion: intact in all extremities, Reports pain in right shoulder. 22:39 Reassessment: Patient appears in no apparent distress at this time. No changes from lg3 previously documented assessment. Patient and/or family updated on plan of care and expected duration. Pain level reassessed. Patient is alert, oriented x 3, equal unlabored respirations, skin warm/dry/pink. 08/12 00:03 Reassessment: Patient appears in no apparent distress at this time. No changes from lg3 previously documented assessment. Patient and/or family updated on plan of care and expected duration. Pain level reassessed. Patient is alert, oriented x 3, equal unlabored respirations, skin warm/dry/pink. Patient states feeling better. Vital Signs: 08/11 19:24 BP 189 / 93; Pulse 62; Resp 18; Temp 97.3(TE); Pulse Ox 99% on R/A; Weight 120.2 kg; nj1 Height 5 ft. 3 in. ; Pain 9/10; 22:39 BP 176 / 89; Pulse 64; Resp 17 S; Pulse Ox 99% on R/A; lg3 08/12 00:08 BP 161 / 86; Pulse 62; Resp 17 S; Pulse Ox 99% on R/A; lg3 06/06 19:24 Body Mass Index 46.94 (120.20 kg, 160.02 cm) nj1 08/11 19:24 Pain Scale: Adult ut1 ED Course: 08/11 18:38 Patient arrived in ED. rg4 19:27 Triage completed. nj1 19:27 Arm band placed on left wrist. nj1 20:00 Rosendo Yee MD is Attending Physician. sp4 20:44 Radiology exam delayed due to lab results not completed at this time. (BUN/Creatinine) jg10 test not completed at this time. IV insertion attempt and/or patient not having appropriate IV at this time. 21:10 Patient has correct armband on for positive identification. Placed in gown. Bed in low lg3 position. Call light in reach. Side rails up X 1. Client placed on continuous cardiac and pulse oximetry monitoring. NIBP monitoring applied. Door closed. Noise minimized. Warm blanket given. Family accompanied patient. 21:12 Basic Metabolic Panel Sent. bc6 21:12 CBC with Diff Sent. bc6 21:12 LFT's Sent. bc6 21:12 PT-INR Sent. bc6 21:12 Troponin HS Sent. bc6 21:12 Inserted saline lock: 20 gauge in left antecubital area, using aseptic technique. bc6 22:10 Radha Mcgraw, RN is Primary Nurse. lg3 22:24 CT Chest For PE Angio In Process Unspecified. EDMS 08/12 00:09 No provider procedures requiring assistance completed. IV discontinued, intact, lg3 bleeding controlled, No redness/swelling at site. Pressure dressing applied. Administered Medications: 08/11 22:35 Drug: HYDROcodone-acetaminophen PO 5 mg-325 mg 1 tabs Route: PO; lg3 08/12 00:02 Follow up: Response: No adverse reaction lg3 08/11 22:35 Drug: Ibuprofen PO 800 mg Route: PO; lg3 08/12 00:02 Follow up: Response: No adverse reaction lg3 08/11 22:35 Drug: Methocarbamol PO 1500 mg Route: PO; lg3 08/12 00:02 Follow up: Response: No adverse reaction lg3 00:02 Drug: HYDROcodone-acetaminophen PO 5 mg-325 mg 1 tabs Route: PO; lg3 00:02 Drug: Promethazine PO 25 mg Route: PO; lg3 Medication: 00:09 VIS not applicable for this client. lg3 Outcome: 08/11 23:43 Discharge ordered by . sp4 08/12 00:09 Discharged to home ambulatory. lg3 Condition: stable Discharge instructions given to patient, Instructed on discharge instructions, follow up and referral plans. medication usage, Demonstrated understanding of instructions, follow-up care, medications, Prescriptions given X 3. 00:09 Patient left the ED. lg3 Signatures: Dispatcher [employer] EDMS Keyla Alvarenga rg4 Radha Mcgraw, NADJA RN lg3 Danielle Nelson jg10 Analisa Del Real bc6 Rosendo Yee MD MD sp4 Trisha Nguyen RN RN nj1 Corrections: (The following items were deleted from the chart) 08/11 19:30 19:24 BP 189 / 93; Pulse 62bpm; Resp 18bpm; Pulse Ox 99% RA; 120.2 kg; Height 5 ft. 3 nj1 in.; BMI: 46.9; Pain 9/10, Adult; nj1
[2022-08-12] MEDS ORDERED: HYDROCODONE/APAP 5/325 MG TAB ONE (00:05)
[2022-08-12] MEDS ORDERED: PROMETHAZINE 25 MG TABLET ONE (00:05)
[2022-08-12 01:46] VITALS: TEMP 97.3; O2SAT 99
[2022-08-12 01:58] VITALS: BP 161/86
== END 2022-08-12 00:09 | disposition home or self-care (01) ==
LOC: ER 18:37
DX: M25.511 Pain in right shoulder (principal); M12.811 Other specific arthropathies, not elsewhere classified, right shoulder; M06.811 Other specified rheumatoid arthritis, right shoulder
CPT/HCPCS: 36415; 71275; 80048; 80076; 84484; 85025; 85610; 86140; 99284; Q9967

== ENCOUNTER 2023-08-24 02:01 | Emergency (ER) | payer OTHER, SELFPAY ==
--- OUTSIDE RECORDS SUMMARY | 2023-08-24 02:06 | XMS REPORT | Continuity of Care Document ---
Author Name Unknown Address [address] [facility] [address] [place] [address] [facility] thconnect Address [address] [place] [address] Care Team Providers Care Senior Director Of Strategy Name Role Phone Freddy Attending Clinician Unavailable EZE HUDSON Attending Clinician Unavailhimanshu patton NO PHYSICIAN, . Attending Clinician Unavailable CLARE COLLIER Attending Clinician Unavailable JR MURDOCK Attending Clinician Unavailable HAILEY GONZALES Attending Clinician Unavailable HORACE CHOU Attending Clinician Unavailable RODRIGUEZ STRINGER Attending Clinician Unavailable Freddy Admitting Clinician Unavailable EZE HUDSON Admitting Clinician UnavailCLARI Demarco Admitting Clinician Unavailable Payers Payer Name Policy Type Policy Number Effective Date Expirati on Date Source [facility] (MEDICAID HMO) [id number] 2017 00:00:00 2017 00:00:00 Encounters Start Date/Time End Date/Time Encounter Type Admission Type Attending Clinicians Care Facility Care Department Encounter ID Source 2023-08-11 08:30:23 2023-08-11 08:30:23 Outpatient [facility] [id number] Reyes Trinidad Paulo 2023-02-24 16:15:14 2023-02-24 16:15:14 Outpatient [facility] [id number] [facility] Trin[facility] Paulo 2023-02-19 10:05:03 2023-02-19 10:05:03 Outpatient [facility] [id number] Re[facility] Paulo 2021-08-20 03:43:00 2021-08-20 03:43:00 Outpatient Chantelle_Nilesho [facility] [id number] [facility] 2021-05-26 05:00:00 2021-05-26 05:00:00 Outpatient [facility] [id number] [facility] 2021-01-29 12:17:00 2021-01-29 12:17:00 Outpatient [facility]o [facility] [id number] [facility] 2020-04-04 04:34:00 2020-04-04 04:34:00 Outpatient Nguyen[facility]Tho [facility] [id number] [facility] 2020-04-04 04:34:00 2020-04-04 04:34:00 Outpatient [facility] [id number] [facility] 2008-02-08 06:39:00 2008-02-10 14:00:00 Inpatient EL EZE HUDSON [facility] [id number] [facility] 2005-11-15 00:12:00 2005-11-15 00:12:00 Outpatient NO , . [facility] [id number] [facility] 2005-03-27 12:45:00 2005-03-30 12:00:00 Inpatient ZEE MAURICE [facility] [id number] [facility] 2004-11-02 17:28:00 2004-11-02 19:40:00 Emergency ER CLARE COLLIER [facility] [id number] [facility] 2004-09-22 18:06:00 2004-09-22 21:10:00 Emergency ER JR MURDOCK [facility] [id number] [facility] 2003-05-18 01:55:00 2003-05-18 03:20:00 Emergency ER HAILEY GONZALES [facility] [id number] [facility] 1998-10-02 16:46:00 1998-10-02 16:46:00 Outpatient HORACE NAYAK [facility] [id number] [facility] 1998-08-07 03:34:00 1998-08-09 10:00:00 Inpatient HORACE GUSMAN [facility] [id number] [facility] 1998-07-12 15:30:00 1998-07-12 15:30:00 Outpatient RODRIGUEZ DAILEY [facility] [id number] [facility] 1998-04-03 10:11:00 1998-04-03 10:11:00 Outpatient HORACE NAYAK [facility] [id number] [facility] 1998-03-29 14:19:00 1998-03-29 14:19:00 Outpatient HORACE NAYAK [facility] [id number] [facility]
[2023-08-24] MEDS ORDERED: methocarbamoL 500 MG TAB ONE (04:51)
[2023-08-24] MEDS ORDERED: IBUPROFEN 400 MG TAB ONE (04:51)
[2023-08-24] MEDS ORDERED: TRAMADOL HCL 50 MG TAB ONE (04:52)
--- NOTE | 2023-08-24 05:53 | ER ---
Nurse's Notes [facility] Name: mEilia Bates Age: 42 yrs Sex: Female : 1980 Arrival Date: 08/24/2023 Time: 02:01 Bed 12 Private MD: Diagnosis: Sprain of other ligament of left ankle;Sprain of ankle Presentation: 08/23 02:30 Chief complaint: Patient states: Stepped in a pot hole at work at 0015 this morning. ss C/o L ankle pain. Coronavirus screen: Client denies travel out of the [place] in the last 14 days. Ebola Screen: Patient denies exposure to infectious person. Patient denies travel to an Ebola-affected area in the 21 days before illness onset. Initial Sepsis Screen: Does the patient meet any 2 criteria? No. Patient's initial sepsis screen is negative. Does the patient have a suspected source of infection? No. Patient's initial sepsis screen is negative. Risk Assessment: Do you want to hurt yourself or someone else? Patient reports no desire to harm self or others. Note PT reports she self administered 400 mg of ibuprofen. Onset of symptoms was August 24, 2023. 02:30 Method Of Arrival: Wheelchair ss 02:30 Acuity: DAKOTAH 4 ss Historical: - Allergies: 02:31 No Known Allergies; ss - Home Meds: 02:31 gabapentin oral [Active]; Lisinopril [Active]; ss - PMHx: 02:31 Hypertensive disorder; RA; ss - PSHx: 02:31 section; ss - Immunization history:: Client reports having NOT received the Covid vaccine. - Infectious Disease History:: Denies. - Social history:: Smoking status: Patient denies any tobacco usage or history of. - Family history:: not pertinent. Screenin:32 [facility] ED Fall Risk Assessment (Adult) History of falling in the last 3 months, ss including since admission Yes- single mechanical fall (1 pt) Confusion or Disorientation No (0 pts) Intoxicated or Sedated No (0 pts) Impaired Gait No (0 pts) Mobility Assist Device Used No (0 pt) Altered Elimination No (0 pt) Score/Fall Risk Level 0 - 2 = Low Risk Maintained a safe environment. Abuse screen: Denies threats or abuse. Denies injuries from another. Nutritional screening: No deficits noted. Tuberculosis screening: Never had TB. Assessment: 02:32 General: Appears in no apparent distress. comfortable, Behavior is calm, cooperative. ss Pain: Complains of pain in L ankle Pain currently is 8 out of 10 on a pain scale. Quality of pain is described as throbbing, Pain began suddenly, Is continuous. Neuro: Level of Consciousness is awake, alert, obeys commands, Oriented to person, place, time, situation. Cardiovascular: Pulses are palpable in right posterior tibial artery and left posterior tibial artery. Respiratory: Airway is patent Respiratory effort is even, unlabored, Respiratory pattern is regular, symmetrical. Derm: Skin is intact, is healthy with good turgor, Skin is dry, Skin is pink, warm \T\ dry. normal. Musculoskeletal: Swelling present in L ankle. 04:57 Reassessment: awaiting for additional XRAYS to be obtained. Friend remains at bedside. ss Call light remains within reach. 06:09 Reassessment: Patient appears in no apparent distress at this time. Patient and/or ss family updated on plan of care and expected duration. Pain level reassessed. Patient is alert, oriented x 3, equal unlabored respirations, skin warm/dry/pink. Patient states feeling better. Vital Signs: 02:30 BP 148 / 93; Pulse 76; Resp 16; Temp 97.6(O); Pulse Ox 100% on R/A; Weight 120.2 kg; ss Height 5 ft. 3 in. ; Pain 8/10; 02:30 Body Mass Index 46.94 (120.20 kg, 160.02 cm) ss 02:30 Pain Scale: Adult ss Avery Coma Score: 05:54 Eye Response: spontaneous(4). Motor Response: obeys commands(6). Verbal Response: sp4 oriented(5). Total: 15. ED Course: 02:06 Patient arrived in ED. gm2 02:31 Triage completed. ss 02:31 Arm band placed on right wrist. ss 02:32 Patient has correct armband on for positive identification. ss 03:11 Ankle Left 3 View XRAY In Process Unspecified. EDMS 03:11 Rosendo Yee MD is Attending Physician. sp4 04:49 Jennifer Pascual, NADJA is Primary Nurse. ss 05:09 Foot Left 3 View XRAY In Process Unspecified. EDMS 05:09 Tib Fib Left XRAY In Process Unspecified. EDMS 05:52 Esvin Patricia MD is Referral Physician. sp4 06:09 No provider procedures requiring assistance completed. Patient did not have IV access ss during this emergency room visit. Crutch training done. 3D boot applied to left foot. Administered Medications: 04:56 Drug: traMADol PO 100 mg PO once Route: PO; ss 06:08 Follow up: Response: No adverse reaction; Pain is decreased ss 04:56 Drug: Ibuprofen PO 800 mg PO once Route: PO; ss 06:08 Follow up: Response: No adverse reaction; Pain is decreased ss 04:56 Drug: Methocarbamol PO 1500 mg PO once Route: PO; ss 06:08 Follow up: Response: No adverse reaction; Pain is decreased ss Medication: 02:32 VIS not applicable for this client. ss Outcome: 05:52 Discharge ordered by . sp4 06:09 Discharged to home via wheelchair, with crutches, ss 06:09 Condition: good 06:09 Discharge instructions given to patient, friend, Instructed on discharge instructions, follow up and referral plans. medication usage, Demonstrated understanding of instructions, follow-up care, medications, crutch walking, Prescriptions given X 3, 06:10 Patient left the ED. ss Signatures: Dispatcher [employer] Jennifer San, NADJA RN Rosendo Yee MD MD sp4 Dee Cobian 2
--- NOTE | 2023-08-24 05:53 | EDPHYS ---
Physician Documentation [facility] Name: Emilia Bates Age: 42 yrs Sex: Female : 1980 Arrival Date: 08/24/2023 Time: 02:01 Bed 12 Private MD: ED Physician Rosendo Yee HPI: 08/23 03:11 This 42 yrs old Female presents to ER via Wheelchair with complaints of Foot sp4 Injury. 05:54 42-year-old female presents with acute left foot and ankle injury on the job at the [employer] where she works. Patient employed as a electrical maintenance supervisor. Historical: - Allergies: 02:31 No Known Allergies; ss - Home Meds: 02:31 gabapentin oral [Active]; Lisinopril [Active]; ss - PMHx: 02:31 Hypertensive disorder; RA; ss - PSHx: 02:31 section; ss - Immunization history:: Client reports having NOT received the Covid vaccine. - Infectious Disease History:: Denies. - Social history:: Smoking status: Patient denies any tobacco usage or history of. - Family history:: not pertinent. ROS: 05:54 MS/extremity: Positive for decreased range of motion, tenderness, of the left lateral sp4 ankle, lateral aspect of left foot, left medial ankle, medial aspect of left foot, anterior aspect of left ankle and dorsum of left foot, 05:54 Constitutional: Negative for fever, chills, and weight loss, positive left foot and ankle pain and tenderness. 05:54 All other systems are negative, Exam: 05:54 Constitutional: This is a well developed, well nourished patient who is awake, alert, sp4 and in no acute distress. Head/Face: Normocephalic, atraumatic. Eyes: Pupils equal round and reactive to light, extra-ocular motions intact. Lids and lashes normal. Conjunctiva and sclera are not injected. Cornea within normal limits. Periorbital areas with no swelling, redness, or edema. ENT: Nares patent. No nasal discharge, no septal abnormalities noted. Tympanic membranes are normal and external auditory canals are clear. Oropharynx with no redness, swelling, or masses, exudates, or evidence of obstruction, uvula midline. Mucous membranes moist. Neck: Trachea midline, no thyromegaly or masses palpated, and no cervical lymphadenopathy. Supple, full range of motion without nuchal rigidity, or vertebral point tenderness. Chest/axilla: Normal chest wall appearance and motion. Nontender with no deformity. No lesions are appreciated. Cardiovascular: Regular rate and rhythm with a normal S1 and S2. No gallops, murmurs, or rubs. Normal PMI, no JVD. No pulse deficits. Respiratory: Lungs have equal breath sounds bilaterally, clear to auscultation and percussion. No rales, rhonchi or wheezes noted. No increased work of breathing, no retractions or nasal flaring. Abdomen/GI: Soft, with normal bowel sounds. No distension or tympany. No guarding or rebound. No evidence of tenderness throughout. Back: No spinal tenderness. No costovertebral tenderness. Skin: Warm, dry with normal turgor. Normal color with no rashes, no lesions, and no evidence of cellulitis. MS/ Extremity: Pulses equal, no cyanosis. Neurovascular intact. Full, normal range of motion. Left foot and ankle swelling tenderness and pain on ambulation, no deformity Neuro: Awake and alert, GCS 15, oriented to person, place, time, and situation. Cranial nerves II-XII grossly intact. Motor strength 5/5 in all extremities. Sensory grossly intact. Psych: Awake, alert, with orientation to person, place and time. Behavior, mood, and affect are within normal limits Vital Signs: 02:30 BP 148 / 93; Pulse 76; Resp 16; Temp 97.6(O); Pulse Ox 100% on R/A; Weight 120.2 kg; ss Height 5 ft. 3 in. ; Pain 8/10; 02:30 Body Mass Index 46.94 (120.20 kg, 160.02 cm) 02:30 Pain Scale: Adult ss Avery Coma Score: 05:54 Eye Response: spontaneous(4). Motor Response: obeys commands(6). Verbal Response: sp4 oriented(5). Total: 15. Procedures: 05:54 Splinting: Splint applied to left calf, left Achilles, left heel, left pollock, anterior sp4 aspect of left ankle and dorsum of left foot using Ortho 3D boot, applied by tech. Examined by me, post splint application: neurovascular intact, 2+ distal pulses palpable, brisk capillary refill noted, Patient tolerated well, Crutches provided. MDM: 03:15 Patient medically screened. sp4 05:54 Differential diagnosis: fracture, sprain, arthritis, cellulitis. Data reviewed: vital sp4 signs, nurses notes. ED course: X-ray left foot negative, x-ray left ankle negative, x-ray left tibia-fibula negative.. 07:48 ED course: EXAM: XR FOOT 3 OR MORE VIEWS LEFT CLINICAL DATA: 42 years Female left foot sp4 pain ! TECHNICAL DATA: Three x-ray views of the left foot were performed on 08/24/2023 at 5:01 AM. COMPARISONS: None FINDINGS: There is no evidence of fracture or dislocation. There is no significant arthritis or degenerative change. No focal lytic or sclerotic bone lesions are seen. There is a small plantar calcaneal spur. There is a tiny well-corticated osseous fragment adjacent to the base of the fifth metatarsal consistent with an apophysis. Bone mineralization is normal. No focal soft tissue abnormalities are identified. IMPRESSION: No evidence of acute osseous injury involving the left foot. There is a small plantar calcaneal spur. . ED course: EXAM: XR TIBIA FIBULA LEFT CLINICAL DATA: 42 years Female pain !! TECHNICAL DATA: Two x-ray views of the left tibia and fibula were performed on 08/24/2023 at 5:03 AM. COMPARISONS: None FINDINGS: There is no evidence of fracture or dislocation. There are mild degenerative changes of the left knee. No focal lytic or sclerotic bone lesions are seen. There is a small plantar calcaneal spur. Bone mineralization is normal. No focal soft tissue abnormalities are identified. IMPRESSION: No evidence of acute osseous injury involving the left tibia or fibula. There are mild degenerative changes of the left knee. . ED course: EXAM: XR ANKLE 3 OR MORE VIEWS LEFT CLINICAL DATA: 42 years Female PAIN.. TECHNICAL DATA: Three x-ray views of the left ankle were performed on 08/24/2023 at 3:02 AM. COMPARISONS: None FINDINGS: There is no evidence of fracture or dislocation. There is no significant arthritis or degenerative change. No focal lytic or sclerotic bone lesions are seen. There is a curvilinear osseous density adjacent to the base of the fifth metatarsal most likely representing the apophysis. There is a small plantar calcaneal spur. Bone mineralization is normal. No focal soft tissue abnormalities are identified. IMPRESSION: No evidence of acute osseous injury involving the left ankle. . 08/23 02:32 Order name: Ankle Left 3 View XRAY sb4 08/23 04:32 Order name: Foot Left 3 View XRAY sp4 08/23 04:32 Order name: Tib Fib Left XRAY sp4 08/23 05:46 Order name: Orthopedic shoe: left leg knee high Ortho boot and crutches ; Complete sp4 Time: 06:08 08/23 05:46 Order name: Crutches; Complete Time: 06:08 sp4 Administered Medications: 04:56 Drug: traMADol PO 100 mg PO once Route: PO; ss 06:08 Follow up: Response: No adverse reaction; Pain is decreased ss 04:56 Drug: Ibuprofen PO 800 mg PO once Route: PO; ss 06:08 Follow up: Response: No adverse reaction; Pain is decreased ss 04:56 Drug: Methocarbamol PO 1500 mg PO once Route: PO; ss 06:08 Follow up: Response: No adverse reaction; Pain is decreased ss Disposition Summary: 08/24/23 05:52 Discharge Ordered Problem: new sp4 Symptoms: are unchanged sp4 Condition: Stable sp4 Diagnosis - Sprain of other ligament of left ankle sp4 - Sprain of ankle sp4 Followup: sp4 - With: Esvin Patricia MD - When: 7 - 10 days - Reason: Recheck today's complaints Discharge Instructions: - Discharge Summary Sheet sp4 - Ankle Sprain, [id number] sp4 Forms: - Work release form ss - Patient Portal Instructions sp4 Prescriptions: - Ibuprofen 800 mg Oral Tablet - take 1 tablet ORAL route every 8 hours As needed take with food; 30 tablet; sp4 Refills: 0, Product Selection Permitted - Tramadol 50 mg Oral tablet - take 1 tablet ORAL route every 8 hours as needed; 20 tablet; Refills: 0, sp4 Product Selection Permitted - methocarbamol 750 mg Oral tablet - take 2 tablets ORAL route 3 times per day for 3 days; 40 tablet; Refills: 0, sp4 Product Selection Permitted Signatures: Dispatcher [employer] Jennifer San RN RN Rosendo Yee MD MD sp4 Corrections: (The following items were deleted from the chart) 04:33 04:33 Tib Fib Left+[email or web address] ordered. EDMS EDMS
[2023-08-24 06:31] VITALS: BP 148/93; TEMP 97.6; O2SAT 100
--- NOTE | 2023-08-24 09:28 | RAD REPORT ---
EXAM DESCRIPTION: RAD - Tib Fib Left - 08/24/2023 5:08 am CLINICAL HISTORY: 42 years Female pain !! TECHNIQUE: Two x-ray views of the left tibia and fibula were performed on 08/24/2023 at 5:03 AM. COMPARISON: None FINDINGS: There is no evidence of fracture or dislocation. There are mild degenerative changes of th e left knee. No focal lytic or sclerotic bone lesions are seen. There is a small plantar calcaneal spur. Bone mineralization is normal. No focal soft tissue abnormalities are identified. IMPRESSION: No evidence of acute osseous injury involving the left tibia or fibula. There are mild d egenerative changes of the left knee. Electronically signed by: Erika Clayton DO 08/24/2023 07:12 AM CDT Due to temporary technical issues with the PACS/Fluency reporting system, reports are being signed by the in house radiologists without review as a courtesy to insure prompt reporting. The interpreting radiologist is fully responsible for the content of the report.
--- NOTE | 2023-08-24 09:33 | RAD REPORT ---
EXAM DESCRIPTION: RAD - Foot Left 3 View - 08/24/2023 5:08 am CLINICAL DATA: 42 years Female left foot pain ! TECHNIQUE: Three x-ray views of the left foot were performed on 08/24/2023 at 5:01 AM. COMPARISON: None FINDINGS: There is no evidence of fracture or dislocation. There is no significant arthritis or dege nerative change. No focal lytic or sclerotic bone lesions are seen. There is a small plantar calcan eal spur. There is a tiny well-corticated osseous fragment adjacent to the base of the fifth metatars al consistent with an apophysis. Bone mineralization is normal. No focal soft tissue abnormalities are identified. IMPRESSION: No evidence of acute osseous injury involving the left foot. There is a small plantar ca lcaneal spur. Electronically signed by: Erika Clayton DO 08/24/2023 07:14 AM CDT Due to temporary technical issues with the PACS/Fluency reporting system, reports are being signed by the in house radiologists without review as a courtesy to insure prompt reporting. The interpreting radiologist is fully responsible for the content of the report.
--- NOTE | 2023-08-24 10:51 | RAD REPORT ---
EXAM DESCRIPTION: RAD - Ankle Left 3 View - 08/24/2023 3:09 am CLINICAL HISTORY: 42 years Female PAIN.. TECHNIQUE: Three x-ray views of the left ankle were performed on 08/24/2023 at 3:02 AM. COMPARISON: None FINDINGS: There is no evidence of fracture or dislocation. There is no significant arthritis or dege nerative change. No focal lytic or sclerotic bone lesions are seen. There is a curvilinear osseous density adjacent to the base of the fifth metatarsal most likely representing the apophysis. There is a small plantar calcaneal spur. Bone mineralization is normal. No focal soft tissue abnormalities are identified. IMPRESSION: No evidence of acute osseous injury involving the left ankle. Electronically signed by: Erika Clayton DO 08/24/2023 07:10 AM CDT RP Due to temporary technical issues with the PACS/Fluency reporting system, reports are being signed by the in house radiologists without review as a courtesy to insure prompt reporting. The interpreting radiologist is fully responsible for the content of the report.
== END 2023-08-24 06:10 | disposition home or self-care (01) ==
LOC: ER 02:01
DX: S93.492A Sprain of other ligament of left ankle, initial encounter (principal); X58.XXXA Exposure to other specified factors, initial encounter; Y92.512 Supermarket, store or market as the place of occurrence of the external cause; Y99.0 Civilian activity done for income or pay